=== PATIENT | male | born 1995 | race Caucasian/White ===

== ENCOUNTER 2024-09-23 18:36 | Emergency (ER) | payer OTHER ==
[2024-09-23 18:45] VITALS: BP 123/84; PULSE 75; RESP 20; TEMP 97.9; BMI 25.1
[2024-09-23] MEDS ORDERED: ACETAMINOPHEN 325 MG TABLET (FP) ONE (19:24)
[2024-09-23] MEDS: ACETAMINOPHEN 325 MG TABLET (FP) PO ONE (19:39)
== END 2024-09-23 20:15 | disposition home or self-care (01) ==
LOC: JERFT 18:36 → JER 18:36 → JERFT 20:15
DX: M25.562 Pain in left knee (principal); X50.1XXA Overexertion from prolonged static or awkward postures, initial encounter; Y99.0 Civilian activity done for income or pay
CPT/HCPCS: 73562-TC-LT-FY; 99283-25